=== PATIENT | female | born 1970 | race Caucasian/White ===

== ENCOUNTER 2021-06-29 17:24 | Emergency (ER) | payer OTHER ==
[2021-06-29] MEDS ORDERED: ACETAMINOPHEN 325 MG TABLET (FP) PO ONE (17:45)
[2021-06-29 17:50] VITALS: BP 138/64; PULSE 83; TEMP 97.8; BMI 49.0
[2021-06-29] MEDS ORDERED: ACETAMINOPHEN 325 MG TABLET (FP) ONE (17:50)
== END 2021-06-29 18:51 | disposition home or self-care (01) ==
LOC: FER 17:24
DX: S62.651A Nondisplaced fracture of middle phalanx of left index finger, initial encounter for closed fracture (principal); W22.8XXA Striking against or struck by other objects, initial encounter
CPT/HCPCS: 73140-TC-LT-FY; 99283-25